=== PATIENT | male | born 1990 | race Caucasian/White ===

== ENCOUNTER 2018-04-03 17:39 | Emergency (ER) | payer SELFPAY ==
[2018-04-03 17:56] VITALS: BP 104/63; PULSE 89; RESP 16; TEMP 37.1; O2SAT 97
--- NOTE | 2018-04-03 18:15 | ED.GENADUL_ITS ---
Discharge Plan Disposition Patient Disposition: HOME Condition: Fair Discharge Details Chief Complaint: Orthopedic Clinical Impression: Epicondylitis, lateral Primary Care Provider: NONE,NONE ED Provider: Tammy Finney Home Meds and New Rx's Prescriptions: No Action No Known Home Meds RF: 0 Discharge Instructions Instructions: Tennis Elbow Exercises (GEN), Tennis Elbow (ED) Additional Instructions: At this point, I do not see evidence of ruptured tendon. Symptoms are not consistent with fracture. Your primarily painful over the lateral epicondyle of your elbow leading me to suspect tennis elbow. Encourage rest, ice, elevation. Tylenol and/or ibuprofen as needed for discomfort and he may purchase elbow support brace at local pharmacy to help with discomfort. I have asked her animal care assistant help facilitate follow-up with primary care provider. If you develop fever/chills, increased pain or the new/worsening symptoms please seek care urgently once again Stand Alone Forms: Work Release Referrals: Koko Coto [ NON[facility] STAFF PHYSICIAN] - ([phone]) Discharge Data Discharge Date/Time-TO BE ENTERED AT DEPARTURE: 04/03/18 18:56 Medical Decision Making MDM Narrative Medical decision making narrative: Patient presents today with chief complaint of left elbow pain after feeling a pop when lifting a small engine. On exam, I am unable to appreciate any muscular deformity. Given the mechanism I have very low suspicion for fracture in an otherwise healthy 27-year-old male. Pain is maximal over the lateral epicondyles and the surrounding structures. Advised this may be inflamed, we discussed diagnosis of lateral epicondylitis. Advised that the tricep and bicep feel to be intact. He has minimal discomfort with palpation about these areas. No findings to suggest rupture from forearm. He has good extension and flexion of the wrist against resistance as well as supination pronation against resistance. Sensation is intact. Advised rest, ice, elevation. We discussed bracing techniques that may help with symptom medic management. Advised follow-up with primary care in the next 1-2 weeks for reevaluation. Patient does not have a primary care physician, I have asked her animal care assistant to help facilitate follow-up. I advised he may seek care once again with any new or worsening symptoms. We discussed activities to avoid that may cause increased pain. All his questions and concerns were addressed and he is in agreement with this plan. HPI - General Adult General Mode of arrival: ambulatory . Date/Time Provider Initiated Documentation: 04/03/18 18:14 . Limitations to Documentation: no limitations . Information obtained by: patient . HPI Narrative: Patient is 27-year-old [id number] male presenting today with chief complaint of left elbow pain. He reports that 3 days ago he was lifting a small motor when she felt a pop. Since that time he has had pain. He indicates the lateral aspect of the left elbow extending both proximally and distally a few inches. Denies any fevers or chills. Has not noted any ecchymosis or swelling. States he has been having pain, particularly when using the left forearm. Denies other injury at the time of the incident. 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 Related Data Home Medications Medication Instructions Recorded Confirmed Unknown [No Known Home Meds] 11/25/17 04/03/18 Allergies Allergy/AdvReac Type Severity Reaction Status Date / Time No Known Allergies Allergy Unverified 04/03/18 17:59 General Stated Complaint: Orthopedic OSMAR: 4 Review of Systems Constitutional Reports as per HPI, Denies chills, Denies fever(s) and Denies weakness Cardiovascular Denies chest pain Respiratory Denies cough Musculoskeletal Reports as per HPI, Denies numbness and Denies tingling Integumentary/Breasts Denies new lesions, Denies erythema and Denies rash Neurologic Reports as per HPI, Denies numbness, Denies tingling, Denies paresthesias and Denies weakness [facility] Social History Smoking/Tobacco Use Status: Current every day Exam Const General: cooperative, healthy appearing, comfortable, no acute distress, well developed and well groomed Nutritional Appearance: average body habitus Orientation: alert and awake Resp Effort & Inspection: normal respiratory effort, able to speak in complete sentences and no respiratory distress Cardio Rate: regular rate Rhythm: regular rhythm Skin General skin exam: no rashes or lesions noted Lesions: no lesions Rashes: no rashes Trauma: no lacerations or abrasions Wounds: no wounds Neuro General: alert and awake Cognition: normal cognition Speech: speech normal Gait: normal gait Motor: muscle tone normal throughout Sensory Exam: no sensory deficits noted Extrem General: abnormal to inspection (Patient has discomfort with palpation over the lateral epicondyle and surrounding tissues. Normal hook test, no palpable deformity to the biceps, no Vern deformity. Extension against resistance is intact, no palpable deformity to the tricep. Full range of motion. 5 out of 5 strength against re), full ROM, normal capillary refill, no joint enlargement and normal gait Psych Appearance: grossly normal and well kempt Mental Status: mental status grossly normal Speech and Movement: speech and movement normal Mood: congruent mood Affect: normal affect Course Vital Signs Temperature 37.1 C 04/03/18 17:56 Pulse 89 04/03/18 17:56 Respiratory Rate 16 04/03/18 17:56 Blood Pressure 104/63 04/03/18 17:56 Pulse Oximetry 97 04/03/18 17:56 Temperature 37.1 C 04/03/18 17:56 Pulse 89 04/03/18 17:56 Respiratory Rate 16 04/03/18 17:56 Blood Pressure 104/63 04/03/18 17:56 Pulse Oximetry 97 04/03/18 17:56
== END 2018-04-03 18:56 | disposition home or self-care (01) ==
PROVIDERS: Emergency Provider Physician Assistant
DX: M77.12 Lateral epicondylitis, left elbow (principal)
CPT/HCPCS: 99282

== ENCOUNTER 2023-07-07 14:46 | Emergency (ER) | payer SELFPAY ==
--- NOTE | 2023-07-07 14:45 | DI.RAD_ITS ---
Exam(s) XR WRIST RT COMPLETE EXAM: XR WRIST RT COMPLETE CLINICAL HISTORY: Right wrist pain. TECHNIQUE: 2D digital imaging was performed of the right wrist. Three views were obtained. PA, lat eral and oblique views were obtained. COMPARISON: No exams were available for comparison FINDINGS: BONES: No acute fracture is present. No bony destructive lesion is seen. Chronic deformity of the hea ds of the 4th and 5th metacarpal bones. JOINTS: The carpal bones are normally aligned. SOFT TISSUE: Normal. IMPRESSION: No acute fracture or dislocation. DATA REPOSITORY: RADIATION DOSE DELIVERED:
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
[2023-07-07 15:00] VITALS: BP 94/67; PULSE 83; RESP 20; TEMP 37; O2SAT 99
[2023-07-07] MEDS: Acetaminophen 500 MG TAB 1000 MG PO (15:08)
[2023-07-07] MEDS: Ibuprofen 600 MG TAB PO (15:08)
[2023-07-07 16:10] VITALS: BP 118/73
== END 2023-07-07 16:26 | disposition home or self-care (01) ==
PROVIDERS: Emergency Provider Emergency Medicine
DX: M25.531 Pain in right wrist (principal)
CPT/HCPCS: 99283; 73110; 99282

== ENCOUNTER 2025-04-21 15:38 | Emergency (ER) | payer MEDICAID, SELFPAY ==
[2025-04-21 15:56] VITALS: BP 112/68; PULSE 75; RESP 18; TEMP 36.7; O2SAT 97
--- NOTE | 2025-04-21 16:15 | DI.RAD_ITS ---
Exam(s) XR SHOULDER LT COMPLETE 2+V EXAM: XR SHOULDER LT COMPLETE 2+V CLINICAL HISTORY: trauma, pain - post/lat. TECHNIQUE: 2D digital imaging was performed. COMPARISON: No exams were available for comparison FINDINGS: Five views No evidence of fracture nor dislocation nor abnormal soft tissue calcifications. Subacromial space appears unremarkable. There are no degenerative changes in the glenohumeral and AC joints. Bone density normal. No significant osseous lesions. No adjacent rib fractures. IMPRESSION: No acute osseous findings in the left shoulder. DATA REPOSITORY: RADIATION DOSE DELIVERED:
--- NOTE | 2025-04-21 17:02 | W.ED.GENAD ---
Discharge Plan Disposition Patient Disposition: Home Condition: Fair Discharge Details Clinical Impression: Rotator cuff injury Primary Care Provider: Unknown,Unknown ED Provider: Juan F Mcgraw Home Meds and New Rx's Prescriptions: New cyclobenzaprine 10 mg tablet 10 mg PO TID PRNQty: 30 0RF Discharge Instructions Instructions: Rotator Cuff Injury (DC) Stand Alone Forms: Work Release Referrals: [facility] [Provider Group] HPI General Date/Time Provider Initiated Documentation: 04/21/25 16:15. HPI Narrative: This is a 35-year-old male presenting to the emergency department a chief complaint of left shoulder pain. Patient states that he has been having pain in his left shoulder for a couple of months. 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 He assumed that he injured his rotator cuff or similar and that it would heal if he was patient. Symptoms have been persistent and his encouraged him to come in for evaluation. He did not fall or sustain any direct trauma to the shoulder. He has not had any numbness, tingling, weakness. No fevers or rash. No history of problems with his shoulder prior to a couple of months ago. Patient states that the pain is exacerbated by lifting of the left upper extremity. Related Data Home Medications ?Medication ?Instructions ?Recorded ?Confirmed cyclobenzaprine 10 mg tablet 10 mg PO TID PRN #30 tabs 04/21/25 Previous Rx's ?Medication ?Instructions ?Recorded cyclobenzaprine 10 mg tablet 10 mg PO TID PRN #30 tabs 04/21/25 Allergies Allergy/AdvReac Type Severity Reaction Status Date / Time No Known Allergies Allergy Unverified 04/21/25 16:03 General Stated Complaint: Orthopedic OSMAR: 3 Review of Systems All systems reviewed & are unremarkable except as noted in HPI and below Constitutional Constitutional: Reports system reviewed and no additional complaints, except as documented, Denies fever(s), Denies weakness and Denies weight loss Eyes Eyes: Denies blurry vision ENT Ears, Nose, Mouth, and Throat: Denies sore throat Cardiovascular Cardiovascular: Denies chest pain, Denies palpitations and Denies dyspnea Respiratory Respiratory: Denies cough, Denies dyspnea and Denies wheezing Gastrointestinal Gastrointestinal: Denies abdominal pain, Denies diarrhea, Denies nausea and Denies vomiting Genitourinary Genitourinary: Denies hematuria and Denies dysuria Musculoskeletal Musculoskeletal: Denies back pain, Reports arthralgias and Denies numbness Neurologic Neurologic: Denies numbness and Denies weakness Psychiatric Psychiatric: Denies suicidal ideation Endocrine Endocrine: Denies palpitations Allergic/Immunologic Allergic/Immunologic: Denies wheezing Exam Const General: no acute distress and well groomed HENMT Mouth: oral mucosae normal and moist mucous membranes Throat: posterior oropharynx normal Eyes Conjunctivae: conjunctivae normal Sclera: sclerae normal Neck Neck: full ROM and No JVD Resp Effort & Inspection: normal respiratory effort Auscultation: clear to auscultation bilaterally Cardio Rate: regular rate Rhythm: regular rhythm Heart Sounds: no murmurs GI Palpation: soft and nontender Skin General skin exam: no rashes or lesions noted Neuro General: patient alert and patient oriented x3 Extrem Other: There is tenderness and spasm of the musculature of the posterior aspect of the shoulder particularly in the area of the teres. Pain is exacerbated by abduction and elevation of the shoulder. Tiped can test and champagne pour are positive. Psych Appearance: grossly normal Mental Status: mental status grossly normal Speech and Movement: speech and movement normal Affect: normal affect Thought Process: normal Course Vital Signs Vital signs: Vital Signs Temperature 36.7 C 04/21/25 15:56 Pulse 75 04/21/25 15:56 Respiratory Rate 18 04/21/25 15:56 Blood Pressure 112/68 04/21/25 15:56 Pulse Oximetry 97 04/21/25 15:56 Temperature 36.7 C 04/21/25 15:56 Temperature Source Oral 04/21/25 15:56 Pulse 75 04/21/25 15:56 Respiratory Rate 18 04/21/25 15:56 Blood Pressure 112/68 04/21/25 15:56 Blood Pressure Position Sitting 04/21/25 15:56 Pulse Oximetry 97 04/21/25 15:56 Oxygen Delivery Method Room Air 04/21/25 15:56 Oxygen Flow Rate 0 04/21/25 15:56 Pain Level 5 04/21/25 15:56 Medical Decision Making This is a 35-year-old male presenting to the emergency department with a chief complaint of shoulder pain. The patient was seen and examined by me. Old charts were reviewed and nursing notes were reviewed. Patient has not been seen in this ER for a couple of years and at that time for wrist pain. This is not related. X-ray reviewed by me did not show any acute abnormalities. I suspect the patient is correct and that he does have a rotator cuff injury. He will be referred to orthopedics. He will be given a prescription for Flexeril to use on a as needed basis. PFSH All Active Problems (Updated 04/21/25 @ 17:34 by Juan F Mcgraw MD) Rotator cuff injury (Acute) Social History Smoking/Tobacco Use Status: Current every day Tobacco Type: e-cigarettes Smoking risk assessment performed?: Yes Alcohol Intake: current Alcohol type: beer Drug use: Occasionally Substance use type: does not use Do you feel safe in your relationship?: Yes PAWSS Have you Been Recently Intoxicated or Drunk Within the Last 30 days?: No Have you Ever Experienced Previous Episodes of Alcohol Withdrawal?: No Have you ever Experienced Withdrawal Seizures?: No Have you ever Experienced Delirium Tremens(DT)s?: No Have you ever undergone Alcohol Rehabilitation Treatment (i.e, inpt ot outpatient treatment programs)?: No Have you ever Experienced Blackouts?: No Have you ever Combined Alcohol with other Downers within the last 90 days?: No Have you ever Combined Alcohol with any other Substance of Abuse during the last 90 days?: No Positive Blood Alcohol level on Presentation? [PCS.BAL]: No Evidence of Increased Autonomic Activity (i.e. HR>120, tremor, sweating, agitation, nausea)?: No Result: 0
== END 2025-04-21 17:56 | disposition home or self-care (01) ==
PROVIDERS: Emergency Provider Emergency Medicine
DX: S46.002A Unspecified injury of muscle(s) and tendon(s) of the rotator cuff of left shoulder, initial encounter (principal); X50.0XXA Overexertion from strenuous movement or load, initial encounter
CPT/HCPCS: 99283 ×2; 73030

== ENCOUNTER → 2025-05-24 03:24 | Outpatient (CLI) | payer MEDICAID, SELFPAY ==
--- NOTE | 2025-05-24 06:15 | DI.MRI_ITS ---
Exam(s) MR UPPER JOINT LT WO EXAM: MR UPPER JOINT LT WO CLINICAL HISTORY: L SHOULDER PAIN,rotator cuff injury,[id number]. TECHNIQUE: Multiplanar multisequence MRI was performed. COMPARISON: CR XR SHOULDER LT COMPLETE 2+V from 04/21/2025 FINDINGS: BONES: There are contusions involving the greater tuberosity and posterolateral humeral head. JOINTS: The acromioclavicular joint is normal. The glenohumeral joint is normal. TENDONS: Supraspinatus: There is tendinosis of the supraspinatus tendon. On the sagittal images there is hyperintense signal seen in the supraspinatus tendon anteriorly (8001 images 11 and 12 suspicious for partial tear. The hyperintense signal at the insertion site appears to arise from the bone rather than the tendon. Infraspinatus: Unremarkable. Subscapularis: Unremarkable. Teres Minor: Unremarkable. Biceps and [place]: Unremarkable. MUSCLES: Unremarkable. GLENOID LABRUM: Unremarkable on this noncontrast examination. SOFT TISSUES: Unremarkable. LIGAMENTS: Unremarkable. OTHER: There is fluid in the subacromial subdeltoid bursa. IMPRESSION: 1. Contusion involving the greater tuberosity in the posterolateral humeral head. No definite fracture is seen, however a CT scan of the shoulder may be considered for better evaluation. 2. Findings suggestive of a partial tear of the supraspinatus tendon. 3. Fluid is seen in the subacromial subdeltoid bursa. DATA REPOSITORY:
== END ==
LOC: DI 03:25
PROVIDERS: Visit Provider Student in an Organized Health Care Education/Training Program
DX: S46.002A Unspecified injury of muscle(s) and tendon(s) of the rotator cuff of left shoulder, initial encounter (principal)
CPT/HCPCS: 73221

== ENCOUNTER 2025-07-05 01:01 | Outpatient (CLI) | payer MEDICAID, SELFPAY ==
[2025-07-05] MEDS: Inhaler, Assist Device 1 EACH MC (11:35)
[2025-07-05] MEDS: Methacholine 100 MG VIAL IH (11:35)
[2025-07-05] MEDS: Albuterol HFA 18 GM 200 PUFF INH IH (11:36)
--- NOTE | 2025-07-08 08:20 | W.PFT ---
Date of service: 07/05/25 Time of Service: 09:55 Pulmonary Function Test Result Indications: Dyspnea with exertion Impression 1. Good patient effort was noted. ATS standards for reproducibility were met. 2. Spirometry showed mild obstructive lung disease with an FEV1 of 85% (3.53 L) 3. TLC was normal. No evidence of restrictive lung disease 4. DLCO was normal at 100% 5. At 2.0 mg/mL of methacholine, there was a 22% fall in FEV1 Conclusion: - mild obstructive pulmonary disease - positive methacholine challenge testing
== END 2025-07-05 01:02 | disposition home or self-care (01) ==
LOC: RT 01:02
PROVIDERS: PCP Nurse Practitioner Family; Visit Provider Nurse Practitioner Family
DX: R06.02 Shortness of breath (principal); R06.09 Other forms of dyspnea; J44.9 Chronic obstructive pulmonary disease, unspecified
CPT/HCPCS: 94070; 94726; 94729; 95070; J7674